=== PATIENT | male | born 1960 | race Caucasian/White ===

== ENCOUNTER 2020-02-06 15:02 | Emergency (ER) | payer OTHER, SELFPAY ==
[2020-02-06 15:13] VITALS: BMI 27.9
[2020-02-06 15:18] VITALS: BP 145/94; PULSE 77; RESP 16; TEMP 36.9; O2SAT 95
== END 2020-02-06 17:22 | disposition left against medical advice (07) ==
LOC: ER 15:14
PROVIDERS: Emergency Provider Family Medicine
DX: Z53.21 Procedure and treatment not carried out due to patient leaving prior to being seen by health care provider (principal)
CPT/HCPCS: 99281